=== PATIENT | female | born 1995 | race Caucasian/White ===

== ENCOUNTER 2018-08-01 08:38 | Outpatient (CLI) | payer OTHER | END 2018-08-01 09:00 | disposition home or self-care (01) | LOC: NUCLEAR 08:38 | DX: E05.90 Thyrotoxicosis, unspecified without thyrotoxic crisis or storm (principal) | CPT/HCPCS: 78012; A9531 ==

== ENCOUNTER → 2018-08-02 | Outpatient (CLI) | payer OTHER | END | disposition home or self-care (01) | LOC: NUCLEAR 09:06 | DX: E05.90 Thyrotoxicosis, unspecified without thyrotoxic crisis or storm (principal) | CPT/HCPCS: 78013; A9512 ==

== ENCOUNTER 2018-09-08 12:43 | Outpatient (CLI) | payer OTHER | END 2018-09-08 13:00 | disposition home or self-care (01) | LOC: NUCLEAR 12:43 | DX: E05.90 Thyrotoxicosis, unspecified without thyrotoxic crisis or storm (principal); E05.00 Thyrotoxicosis with diffuse goiter without thyrotoxic crisis or storm | CPT/HCPCS: 79005; A9517 ==

== ENCOUNTER 2019-02-10 10:07 | Outpatient (CLI) | payer OTHER | END 2019-02-10 10:10 | disposition home or self-care (01) | LOC: LAB 10:07 | DX: E03.8 Other specified hypothyroidism (principal); E89.0 Postprocedural hypothyroidism ==

== ENCOUNTER 2022-07-29 10:54 | Outpatient (CLI) | payer OTHER | END 2022-07-29 11:01 | disposition home or self-care (01) | LOC: RAD 10:54 | PROVIDERS: ATTEND Internal Medicine Pulmonary Disease | DX: R06.02 Shortness of breath (principal) ==

== ENCOUNTER 2023-01-11 12:02 | Outpatient (CLI) | payer OTHER | END 2023-01-11 12:13 | disposition home or self-care (01) | LOC: SONOGRAMA 12:02 | PROVIDERS: ATTEND General Practice | DX: E03.2 Hypothyroidism due to medicaments and other exogenous substances (principal); E06.3 Autoimmune thyroiditis; E04.0 Nontoxic diffuse goiter; E55.9 Vitamin D deficiency, unspecified; E56.8 Deficiency of other vitamins ==